=== PATIENT | female | born 1985 | race Caucasian/White ===

== ENCOUNTER 2022-02-19 10:31 | Inpatient (IN) ==
--- NOTE | 2022-02-19 10:55 | History & Physical Report ---
Date of Service February 19, 2022 Assessment & Plan (1) Encounter for induction of labor: Plan: Post dates. Currently at 40w3d. Admit to L&D for induction of labor. Had Rudolph bulb placed last night, which fell out soon after placement. Will start Pitocin. Epidural if desired. (2) In vitro fertilization: (3) Post-dates : Admission and Anticipated Discharge Date Admission Date: February 19, 2022 History of Present Illness Chief Complaint: IOL Primary Care Provider: Anai Hill MD Rosalina is a 36 y/o female currently at 40 3/7 WGA with an KEYANNA 02/16/22 as determined by LMP. Had IVF. Here for induction. Irregular contractions; + movement; denies fluid loss; denies bloody show External FHT and external uterine monitors used Category 1 with moderate variability Had regular appointments with OB. Labs: (07/26/21) Blood type: A+ Antibody screen: negative Hg: pending (today) Hct: pending (today) WBC: pending (today) Plt: pending (today) Rubella: Immune VDRL/RPR: Nonreactive Gonorrhea: neg Chlamydia: neg HIV: neg HbSAg: non reactive GBS: neg Other screens: low risk panorama declined afp Allergies Allergy/AdvReac Type Severity Reaction Status Date / Time progesterone Allergy Severe hives and Verified 02/18/22 09:42 facial swelling Home Medications Medication Instructions Recorded Confirmed Type vit no.95-ferrous 1 tab PO DAILY 06/27/21 02/19/22 History fumarate 28 mg-folic acid 800 mcg tablet () Patient History Medical History Endometriosis History of HPV infection History of ovarian cyst 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 Uterine polyp Surgical History S/P removal of left ovary [place] teeth extracted Family History (Updated 07/16/21 @ 10:06 by Afsaneh Gauthier, DEX) Grandfather (Paternal) Diabetes Aunt Diabetes Grandmother (Maternal) Uterine cancer Congestive heart failure Denies family history of Ovarian cancer Prostate cancer Breast cancer Lung cancer Social History (Updated 07/16/21 @ 10:07 by Afsaneh Gauthier, RN) Smoking Status: Never smoker Second Hand Exposure: No; Hx Alcohol Use: No Hx Substance Use: No Preferred Language: Vietnamese Communication Ability: Effective Director [employer] Required: No Beliefs That Will Affect Care: None marital status: marital status details: Jesus (35) [phone] Current Living Situation: Spouse Current Living Situation Comment: and 2 dogs current occupational status: employed current occupation: Dental office Other Information That Helps Us Care for You: No Feels Safe at Home: Yes Safety Concerns: Feels Safe At This Time Assistive Devices: None Review of Systems Denies fever, chills, sweats Denies shortness of breath, difficulty breathing, chest pain, palpitations, chest pressure. Denies breast pain. Denies dysuria. Denies headache or changes in vision. Physical Exam Physical Exam: General: Alert, oriented. No acute distress. Cardiac: Regular rate and rhythm, no murmurs/rubs/gallops. Respiratory: Clear to auscultation bilaterally a/p, no wheezes/rales/rhonchi. No increased work of breathing. Symmetrical chest rise. No respiratory distress. Abdomen: Gravid Pelvic: Dilation 2 cm; Effacement 50; Station -[address] Smith Lower Extremities: No lower extremity edema or swelling. No deep calf pain. Shavonne's negative bilaterally Supervising Physician Co-Signing Physician Notes Resident Physician Supervision Note: I interviewed and examined the patient. Discussed with Dr. Riggs and agree with findings and plan as documented in the note. Any exceptions or clarifications are listed here: with iup at 40+ weeks here for postdates induction. IVF . Uncomplicated. PLan pit, epidural on demand, arom. anticipate . Documented By: Saloni Smith MD, FACOG Resident Activity Tracking Resident Involvement: Resident Care Provided Care Provided: OB Delivery
[2022-02-19] MEDS ORDERED: OXYTOCIN 30 UNITS/500 ML BAG IV PRN ×2 (11:23)
[2022-02-19] MEDS ORDERED: LIDOCAINE 1% LOCAL 20 ML VIAL INFIL PRN (11:23)
[2022-02-19] MEDS: LACTATED RINGER'S 1,000 ML IV PRN ×3 (11:44→22:00)
[2022-02-19 11:59] LABS: Hematocrit (blood only) 36.3 % (34.1-44.9); Mean Corpuscular Hemoglobin 30.2 pg (25.0-34.0); Mean Corpuscular Hgb Conc 35.8 g/dL (32.0-36.0); Mean Corpuscular Volume 84.4 fL (80.0-100.0); Mean Platelet Volume 12.1 fL (9.4-12.3); Platelet Count 141 K/uL (130-400); RDW Coefficient of Variation 12.2 % (11.5-14.5); RDW Standard Deviation 36.6 fL (36.4-46.3); White Blood Count 9.56 K/ul (4.8-10.8)
[2022-02-19] MEDS ORDERED: BUPIVACAINE 0.25% 30 ML VIAL ONE ×2 (17:41→23:42)
[2022-02-19] MEDS ORDERED: SODIUM CHLORIDE 0.9% INJ 10 ML VIAL ONE ×2 (17:41→23:42)
[2022-02-19] MEDS ORDERED: LIDOCAINE 2%/EPINEPHRINE 1:200,000 20 ML SDV ONE (17:41)
[2022-02-19] MEDS ORDERED: ePHEDrine sulfate 50 MG/ML AMP ONE (17:41)
[2022-02-19] MEDS ORDERED: fentaNYL citrate 100 MCG/2 ML VIAL ONE (17:41)
[2022-02-19] MEDS ORDERED: fentaNYL 2MCG/ML ROPIVACAINE 1.25MG/ML 100 ML BAG EPI ONE (17:42)
[2022-02-19] MEDS ORDERED: fentaNYL 2MCG/ML ROPIVACAINE 1.25MG/ML 100 ML BAG EPI PRN (18:11)
[2022-02-19] MEDS ORDERED: NALBUPHINE HCL INJ 10 MG/ML AMP IV PRN (18:11)
[2022-02-19] MEDS ORDERED: diphenhydrAMINE 50 MG/ML VIAL IV PRN (18:11)
[2022-02-19] MEDS ORDERED: NALOXONE HCL 1 MG in SODIUM CHLORIDE 0.9% 1000ML 1,000 ML IV PRN (18:11)
[2022-02-19] MEDS ORDERED: ePHEDrine sulfate 50 MG/ML AMP IV PRN (18:11)
[2022-02-19] MEDS ORDERED: ONDANSETRON INJ 2 MG/ML 2 ML VIAL IV PRN (18:11)
[2022-02-19] MEDS ORDERED: NALOXONE HCL 0.4 MG/1 ML VIAL/CARP IV PRN (18:11)
--- NOTE | 2022-02-19 18:13 | Anesthesiology Consultation ---
Date of Service February 19, 2022 Assessment & Plan Chart Review Chart Review: Patient NOT seen in Pre Admission Testing and Acceptable Risk for Labor Epidural Consults Requested none ASA ASA2 Proposed Anesthesia Anesthesia Type: Labor Epidural and CSE Risk / Benefits Reviewed With: PT / POA / Parent / Guardian, Accepts Plan and Informed Consent Obtained History Height/Weight Height: 5 ft 2 in Weight: 65.771 kg Allergies Allergy/AdvReac Type Severity Reaction Status Date / Time progesterone Allergy Severe hives and Verified 02/18/22 09:42 facial swelling Medications Home Medications Medication Instructions Recorded Confirmed Last Taken vit no.95-ferrous 1 tab PO DAILY 06/27/21 02/19/22 02/18/22 fumarate 28 mg-folic acid 800 mcg tablet () Active Medications Generic Name Dose Route Start Last Admin Trade Name Freq PRN Reason Stop Dose Admin Oxytocin 30 units in 500 mls @ 14 mls/hr 02/19/22 11:23 02/19/22 16:45 Pitocin IV 02/21/22 11:22 0.84 units/hr .Q24H PRN 14 mls/hr Labor Induction/Augmentation Titration Protocol 0.84 UNITS/HR Lactated Ringer's 1,000 mls @ 125 mls/hr 02/19/22 11:23 02/19/22 17:45 Lr IV 02/21/22 11:22 999 mls/hr .Q8H PRN Administration L&D Protocol Protocol NPO Date Last Intake of Fluids: 02/19/22 Time Last Intake of Fluids: 17:00 Date Last Intake of Solids: 02/19/22 Time Last Intake of Solids: 09:00 Past Medical History Medical History Endometriosis History of HPV infection History of ovarian cyst 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 Uterine polyp Exercise / Class Metabolic Activity II 4-5 Yardwork/Stairs/Walk up hill Past Family History Family History Grandfather (Paternal) Diabetes Aunt Diabetes Grandmother (Maternal) Uterine cancer Congestive heart failure Denies family history of Ovarian cancer Prostate cancer Breast cancer Lung cancer Past Surgical History Surgical History S/P removal of left ovary [place] teeth extracted Past Anesthesia History No Hx of Anesthesia Complications and No Family Hx of Anesthesia Complications History of PONV No Hx of PONV and No Hx of Motion Sickness Social History Smoking Status: Never smoker Hx Alcohol Use: No Hx Substance Use: No substance use type: does not use Review of Systems no chest pain or sob Physical Exam Vital Signs Last Vital Signs Temp 37.1 C 02/19/22 16:30 Pulse 67 02/19/22 18:10 Resp 18 02/19/22 18:00 BP 116/77 02/19/22 17:59 Pulse Ox 100 02/19/22 18:10 ENMT Mouth: no TMJ abnormality Thyromental Distance: > or= 3.5 Finger Breadths Mallampati Class: II Neck normal visual inspection Respiratory normal respiratory effort Auscultation: lungs clear to auscultation bilaterally Cardiovascular Rate/Rhythm: regular rate and regular rhythm Musculoskeletal Spine: normal cervical ROM Neurologic moves all extremities Psychiatric Orientation: alert and oriented x 3 Testing Laboratory Results 02/19/22 11:43
--- NOTE | 2022-02-19 19:14 | Labor Progress Brief Note ---
Date of Service February 19, 2022 Subjective comfortable after epidural Assessment & Plan (1) Encounter for induction of labor: Plan continue current management. fetus category one. Admission and Anticipated Discharge Date Admission Date: February 19, 2022 Physical Exam Physical Exam: cx--3-4/75/-2 arom--clear toco--q2-4, pit at 14 efm--140s with mod variability, accels to 160s, no decels Results & Data ([facility]) Vital Signs (Past 12 Hours) Vital Signs Temp Pulse Resp BP Pulse Ox 02/19/22 10:51 36.9 C 20 02/19/22 19:10 98 02/19/22 19:10 77 02/19/22 19:05 97 02/19/22 19:05 60 02/19/22 19:01 18 02/19/22 19:01 36.8 C 18 02/19/22 19:00 20 02/19/22 19:00 20 02/19/22 19:00 97 02/19/22 19:00 62 02/19/22 19:01 62 02/19/22 19:01 112/70 02/19/22 18:55 96 02/19/22 18:55 74 02/19/22 18:55 107/70 02/19/22 18:50 97 02/19/22 18:50 69 02/19/22 18:50 112/58 L 02/19/22 18:45 97 02/19/22 18:45 63 02/19/22 18:44 66 02/19/22 18:44 102/64 02/19/22 18:30 20 02/19/22 18:30 20 02/19/22 18:40 97 02/19/22 18:40 63 02/19/22 18:40 99/62 L 02/19/22 18:35 98 02/19/22 18:35 62 02/19/22 18:34 75 02/19/22 18:34 106/60 02/19/22 18:32 61 02/19/22 18:32 104/59 L 02/19/22 18:30 99 02/19/22 18:30 67 02/19/22 18:30 66 02/19/22 18:30 107/59 L 02/19/22 18:28 62 02/19/22 18:28 102/56 L 02/19/22 18:27 62 02/19/22 18:27 113/56 L 02/19/22 18:25 100 02/19/22 18:25 80 02/19/22 18:24 70 02/19/22 18:24 118/76 02/19/22 18:23 81 02/19/22 18:23 120/71 02/19/22 18:20 100 02/19/22 18:20 78 02/19/22 18:15 100 02/19/22 18:15 74 02/19/22 18:10 100 02/19/22 18:10 67 02/19/22 18:05 100 02/19/22 18:05 67 02/19/22 18:00 18 02/19/22 18:00 18 02/19/22 18:00 100 02/19/22 18:00 67 02/19/22 17:59 60 02/19/22 17:59 116/77 02/19/22 17:30 20 02/19/22 17:30 20 02/19/22 17:55 100 02/19/22 17:55 64 02/19/22 17:50 99 02/19/22 17:50 64 02/19/22 17:50 120/76 02/19/22 17:00 16 02/19/22 17:00 16 02/19/22 16:30 20 02/19/22 16:30 37.1 C 20 02/19/22 17:00 65 02/19/22 17:00 113/75 02/19/22 16:08 68 02/19/22 16:08 111/73 02/19/22 15:03 67 02/19/22 15:03 113/75 02/19/22 14:01 78 02/19/22 14:01 116/75 02/19/22 13:00 18 02/19/22 13:00 18 02/19/22 12:59 77 02/19/22 12:59 120/80 02/19/22 12:30 20 02/19/22 12:30 20 02/19/22 12:00 18 02/19/22 12:00 18 02/19/22 12:22 75 02/19/22 12:22 106/67 02/19/22 10:49 76 118/74 Coding Level of Care Code None Diagnoses Encounter for induction of labor Z34.90
--- NOTE | 2022-02-19 22:24 | Labor Progress Brief Note ---
Date of Service February 19, 2022 Subjective comfortable Assessment & Plan (1) Encounter for induction of labor: Plan continue current management. has made small changed. fetus overall reassuring, occasional variable with contraction but mostly early. light mec noted at last check. if no change in another hour, consider iupc. Admission and Anticipated Discharge Date Admission Date: February 19, 2022 Physical Exam Physical Exam: cx--/90/-2 per nursing bloody show and light mec noted by nursing efm--130s with mod variabiltiy, small accels , variable/early decels with contractions toco--q3-5min, pit at 18 Results & Data ([facility]) Vital Signs (Past 12 Hours) Vital Signs Temp Pulse Resp BP Pulse Ox 02/19/22 10:51 36.9 C 20 02/19/22 22:20 98 02/19/22 22:20 77 02/19/22 22:15 97 02/19/22 22:15 82 02/19/22 22:12 64 02/19/22 22:12 114/70 02/19/22 22:10 94 02/19/22 22:10 67 02/19/22 22:05 96 02/19/22 22:05 61 02/19/22 22:00 97 02/19/22 22:00 71 02/19/22 21:58 61 02/19/22 21:58 98/55 L 02/19/22 21:55 97 02/19/22 21:55 69 02/19/22 21:50 97 02/19/22 21:50 67 02/19/22 21:47 18 02/19/22 21:47 37.1 C 18 02/19/22 21:45 98 02/19/22 21:45 79 02/19/22 21:40 97 02/19/22 21:40 64 02/19/22 21:41 61 02/19/22 21:41 116/68 02/19/22 21:35 96 02/19/22 21:35 70 02/19/22 21:30 97 02/19/22 21:30 65 02/19/22 21:27 64 02/19/22 21:27 107/64 02/19/22 21:25 98 02/19/22 21:25 71 02/19/22 21:20 97 02/19/22 21:20 66 02/19/22 21:15 97 02/19/22 21:15 84 02/19/22 21:12 64 02/19/22 21:12 112/67 02/19/22 21:10 97 02/19/22 21:10 72 02/19/22 21:05 96 02/19/22 21:05 67 02/19/22 21:00 97 02/19/22 21:00 67 02/19/22 20:55 96 02/19/22 20:55 67 02/19/22 20:56 68 02/19/22 20:56 101/60 02/19/22 20:50 96 02/19/22 20:50 65 02/19/22 20:45 98 02/19/22 20:45 68 02/19/22 20:42 63 02/19/22 20:42 102/60 02/19/22 20:40 95 02/19/22 20:40 67 02/19/22 20:35 96 02/19/22 20:35 61 02/19/22 20:30 98 02/19/22 20:30 66 02/19/22 20:25 97 02/19/22 20:25 63 02/19/22 20:26 64 02/19/22 20:26 96/55 L 02/19/22 20:20 97 02/19/22 20:20 65 02/19/22 20:15 98 02/19/22 20:15 65 02/19/22 20:11 63 02/19/22 20:11 110/67 02/19/22 20:10 98 02/19/22 20:10 69 02/19/22 20:09 18 02/19/22 20:09 37.2 C 18 02/19/22 20:05 97 02/19/22 20:05 62 02/19/22 20:00 96 02/19/22 20:00 70 02/19/22 19:55 95 02/19/22 19:55 62 02/19/22 19:56 63 02/19/22 19:56 105/64 02/19/22 19:50 96 02/19/22 19:50 65 02/19/22 19:45 96 02/19/22 19:45 66 02/19/22 19:41 18 02/19/22 19:41 18 02/19/22 19:41 64 02/19/22 19:41 112/69 02/19/22 19:40 95 02/19/22 19:40 75 02/19/22 19:35 95 02/19/22 19:35 65 02/19/22 19:30 96 02/19/22 19:30 71 02/19/22 19:25 96 02/19/22 19:25 76 02/19/22 19:26 74 02/19/22 19:26 116/65 02/19/22 19:20 97 02/19/22 19:20 71 02/19/22 19:15 95 02/19/22 19:15 70 02/19/22 19:10 98 02/19/22 19:10 77 02/19/22 19:05 97 02/19/22 19:05 60 02/19/22 19:01 18 02/19/22 19:01 36.8 C 18 02/19/22 19:00 20 02/19/22 19:00 20 02/19/22 19:00 97 02/19/22 19:00 62 02/19/22 19:01 62 02/19/22 19:01 112/70 02/19/22 18:55 96 02/19/22 18:55 74 02/19/22 18:55 107/70 02/19/22 18:50 97 02/19/22 18:50 69 02/19/22 18:50 112/58 L 02/19/22 18:45 97 02/19/22 18:45 63 02/19/22 18:44 66 02/19/22 18:44 102/64 02/19/22 18:30 20 02/19/22 18:30 20 02/19/22 18:40 97 02/19/22 18:40 63 02/19/22 18:40 99/62 L 02/19/22 18:35 98 02/19/22 18:35 62 02/19/22 18:34 75 02/19/22 18:34 106/60 02/19/22 18:32 61 02/19/22 18:32 104/59 L 02/19/22 18:30 99 02/19/22 18:30 67 02/19/22 18:30 66 02/19/22 18:30 107/59 L 02/19/22 18:28 62 02/19/22 18:28 102/56 L 02/19/22 18:27 62 02/19/22 18:27 113/56 L 02/19/22 18:25 100 02/19/22 18:25 80 02/19/22 18:24 70 02/19/22 18:24 118/76 02/19/22 18:23 81 02/19/22 18:23 120/71 02/19/22 18:20 100 02/19/22 18:20 78 02/19/22 18:15 100 02/19/22 18:15 74 02/19/22 18:10 100 02/19/22 18:10 67 02/19/22 18:05 100 02/19/22 18:05 67 02/19/22 18:00 18 02/19/22 18:00 18 02/19/22 18:00 100 02/19/22 18:00 67 02/19/22 17:59 60 02/19/22 17:59 116/77 02/19/22 17:30 20 02/19/22 17:30 20 02/19/22 17:55 100 02/19/22 17:55 64 02/19/22 17:50 99 02/19/22 17:50 64 02/19/22 17:50 120/76 02/19/22 17:00 16 02/19/22 17:00 16 02/19/22 16:30 20 02/19/22 16:30 37.1 C 20 02/19/22 17:00 65 02/19/22 17:00 113/75 02/19/22 16:08 68 02/19/22 16:08 111/73 02/19/22 15:03 67 02/19/22 15:03 113/75 02/19/22 14:01 78 02/19/22 14:01 116/75 02/19/22 13:00 18 02/19/22 13:00 18 02/19/22 12:59 77 02/19/22 12:59 120/80 02/19/22 12:30 20 02/19/22 12:30 20 02/19/22 12:00 18 10/19/22 12:00 18 02/19/22 12:22 75 02/19/22 12:22 106/67 02/19/22 10:49 76 118/74 Coding Level of Care Code None Diagnoses Encounter for induction of labor Z34.90
--- NOTE | 2022-02-19 23:11 | Labor Progress Brief Note ---
Date of Service February 19, 2022 Subjective some back discomfort Assessment & Plan (1) Post-dates : (2) Encounter for induction of labor: Plan fetus overall reassuring. will allow to labor down. begin active second stage in one hour. anticipate . Admission and Anticipated Discharge Date Admission Date: February 19, 2022 Physical Exam Physical Exam: cx--c/c/+0 toco--q2-3, pit at 18 efm--110s with mod variabiltiy, small accels, early decels with contractions Results & Data ([facility]) Vital Signs (Past 12 Hours) Vital Signs Temp Pulse Resp BP Pulse Ox 02/19/22 23:05 95 02/19/22 23:05 75 02/19/22 23:00 97 02/19/22 23:00 75 02/19/22 22:55 96 02/19/22 22:55 69 02/19/22 22:56 71 02/19/22 22:56 111/69 02/19/22 22:50 99 02/19/22 22:50 82 02/19/22 22:45 95 02/19/22 22:45 66 02/19/22 22:42 70 02/19/22 22:42 121/72 02/19/22 22:40 96 02/19/22 22:40 78 02/19/22 22:35 98 02/19/22 22:35 95 H 02/19/22 22:30 96 02/19/22 22:30 86 02/19/22 22:26 71 02/19/22 22:26 112/71 02/19/22 22:25 97 02/19/22 22:25 79 02/19/22 22:20 98 02/19/22 22:20 77 02/19/22 22:15 97 02/19/22 22:15 82 02/19/22 22:12 64 02/19/22 22:12 114/70 02/19/22 22:10 94 02/19/22 22:10 67 02/19/22 22:05 96 02/19/22 22:05 61 02/19/22 22:00 97 02/19/22 22:00 71 02/19/22 21:58 61 02/19/22 21:58 98/55 L 02/19/22 21:55 97 02/19/22 21:55 69 02/19/22 21:50 97 02/19/22 21:50 67 02/19/22 21:47 18 02/19/22 21:47 37.1 C 18 02/19/22 21:45 98 02/19/22 21:45 79 02/19/22 21:40 97 02/19/22 21:40 64 02/19/22 21:41 61 02/19/22 21:41 116/68 02/19/22 21:35 96 02/19/22 21:35 70 02/19/22 21:30 97 02/19/22 21:30 65 02/19/22 21:27 64 02/19/22 21:27 107/64 02/19/22 21:25 98 02/19/22 21:25 71 02/19/22 21:20 97 02/19/22 21:20 66 02/19/22 21:15 97 02/19/22 21:15 84 02/19/22 21:12 64 02/19/22 21:12 112/67 02/19/22 21:10 97 02/19/22 21:10 72 02/19/22 21:05 96 02/19/22 21:05 67 02/19/22 21:00 97 02/19/22 21:00 67 02/19/22 20:55 96 02/19/22 20:55 67 02/19/22 20:56 68 02/19/22 20:56 101/60 02/19/22 20:50 96 02/19/22 20:50 65 02/19/22 20:45 98 02/19/22 20:45 68 02/19/22 20:42 63 02/19/22 20:42 102/60 02/19/22 20:40 95 02/19/22 20:40 67 02/19/22 20:35 96 02/19/22 20:35 61 02/19/22 20:30 98 02/19/22 20:30 66 02/19/22 20:25 97 02/19/22 20:25 63 02/19/22 20:26 64 02/19/22 20:26 96/55 L 02/19/22 20:20 97 02/19/22 20:20 65 02/19/22 20:15 98 02/19/22 20:15 65 02/19/22 20:11 63 02/19/22 20:11 110/67 02/19/22 20:10 98 02/19/22 20:10 69 02/19/22 20:09 18 02/19/22 20:09 37.2 C 18 02/19/22 20:05 97 02/19/22 20:05 62 02/19/22 20:00 96 02/19/22 20:00 70 02/19/22 19:55 95 02/19/22 19:55 62 02/19/22 19:56 63 02/19/22 19:56 105/64 02/19/22 19:50 96 02/19/22 19:50 65 02/19/22 19:45 96 02/19/22 19:45 66 02/19/22 19:41 18 02/19/22 19:41 18 02/19/22 19:41 64 02/19/22 19:41 112/69 02/19/22 19:40 95 02/19/22 19:40 75 02/19/22 19:35 95 02/19/22 19:35 65 02/19/22 19:30 96 02/19/22 19:30 71 02/19/22 19:25 96 02/19/22 19:25 76 02/19/22 19:26 74 02/19/22 19:26 116/65 02/19/22 19:20 97 02/19/22 19:20 71 02/19/22 19:15 95 02/19/22 19:15 70 02/19/22 19:10 98 02/19/22 19:10 77 02/19/22 19:05 97 02/19/22 19:05 60 02/19/22 19:01 18 02/19/22 19:01 36.8 C 18 02/19/22 19:00 20 02/19/22 19:00 20 02/19/22 19:00 97 02/19/22 19:00 62 02/19/22 19:01 62 02/19/22 19:01 112/70 02/19/22 18:55 96 02/19/22 18:55 74 02/19/22 18:55 107/70 02/19/22 18:50 97 02/19/22 18:50 69 02/19/22 18:50 112/58 L 02/19/22 18:45 97 02/19/22 18:45 63 02/19/22 18:44 66 02/19/22 18:44 102/64 02/19/22 18:30 20 02/19/22 18:30 20 02/19/22 18:40 97 02/19/22 18:40 63 02/19/22 18:40 99/62 L 02/19/22 18:35 98 02/19/22 18:35 62 02/19/22 18:34 75 02/19/22 18:34 106/60 02/19/22 18:32 61 02/19/22 18:32 104/59 L 02/19/22 18:30 99 02/19/22 18:30 67 02/19/22 18:30 66 02/19/22 18:30 107/59 L 02/19/22 18:28 62 02/19/22 18:28 102/56 L 02/19/22 18:27 62 02/19/22 18:27 113/56 L 02/19/22 18:25 100 02/19/22 18:25 80 02/19/22 18:24 70 02/19/22 18:24 118/76 02/19/22 18:23 81 02/19/22 18:23 120/71 02/19/22 18:20 100 02/19/22 18:20 78 02/19/22 18:15 100 02/19/22 18:15 74 02/19/22 18:10 100 02/19/22 18:10 67 02/19/22 18:05 100 02/19/22 18:05 67 02/19/22 18:00 18 02/19/22 18:00 18 02/19/22 18:00 100 02/19/22 18:00 67 02/19/22 17:59 60 02/19/22 17:59 116/77 02/19/22 17:30 20 02/19/22 17:30 20 02/19/22 17:55 100 02/19/22 17:55 64 02/19/22 17:50 99 02/19/22 17:50 64 02/19/22 17:50 120/76 02/19/22 17:00 16 10/19/22 17:00 16 02/19/22 16:30 20 02/19/22 16:30 37.1 C 20 02/19/22 17:00 65 02/19/22 17:00 113/75 02/19/22 16:08 68 02/19/22 16:08 111/73 02/19/22 15:03 67 02/19/22 15:03 113/75 02/19/22 14:01 78 02/19/22 14:01 116/75 02/19/22 13:00 18 02/19/22 13:00 18 02/19/22 12:59 77 02/19/22 12:59 120/80 02/19/22 12:30 20 02/19/22 12:30 20 02/19/22 12:00 18 02/19/22 12:00 18 02/19/22 12:22 75 02/19/22 12:22 106/67 Coding Level of Care Code None Diagnoses Post-dates O48.0 Encounter for induction of labor Z34.90
[2022-02-19] MEDS ORDERED: NURSING L&D Epidural Breakthrough Pain Update ONE (23:24)
[2022-02-20] MEDS ORDERED: METHYLERGONOVINE MALEATE 0.2 MG/ML AMP IM ONE (02:28)
[2022-02-20] MEDS ORDERED: OXYTOCIN 30 UNITS/500 ML BAG IV PRN (02:28)
[2022-02-20] MEDS ORDERED: oxyCODONE/ACETAMINOPHEN 5mg/325mg TAB PO PRN (02:28)
[2022-02-20] MEDS ORDERED: HYDROCORTISONE ACETATE 25 MG SUPP PR PRN (02:28)
[2022-02-20] MEDS ORDERED: ACETAMINOPHEN 325 MG TAB PO PRN (02:28)
[2022-02-20] MEDS ORDERED: DIPHTHERIA/TETANUS/PERTUSSIS 0.5 ML SYR/VIAL IM ONE (02:28)
[2022-02-20] MEDS ORDERED: BENZOCAINE 20% AER SPR 82.5 GM CAN EXT PRN (02:28)
[2022-02-20] MEDS ORDERED: bisacodyL 10 MG SUPP PR PRN (02:28)
--- NOTE | 2022-02-20 02:33 | Delivery Summary ---
Vaginal Delivery Summary Date of Service February 20, 2022 Vaginal Delivery Summary and 2nd Degree LAC Pre-operative Diagnosis: at 40 +weeks ivf Post-operative Diagnosis: same meconium Procedure: pitocin induction epidural arom second degree lac reapir EBL: 350cc Anesthesia: epidural Procedure: The patient presents to labor and delivery for induction for postdates. She underwent pitocin induction and then epidural. Had arom for clear fluid. During the course of labor, meconium noted. The patient progressed to c/c/+1 station and labored down for a little over an hour. The patient pushed for 23 min to deliver a viable female in linnea position. The nose and mouth were bulb suctioned on the perineum and the rest of the was then delivered without difficulty. The baby was vigorous. The nose and mouth were again bulb suctioned and the infant was placed in the maternal abdomen for drying and attention. Cord was clamped and cut at one minute of life. Cord blood and segment obtained. Placenta delivered spontaneous, intact with a three vessel cord. Cervix/sulci/rectum were intact. A second degree perineal laceration was repaired in the normal standard fashion. Hemostasis obtained with dilute pitocin and fundal massage. Apgars were 8/9. Mother and baby doing well at the end of the delivery. [facility] Vaginal Delivery Charge Delivery Type Details: and 2nd Degree LAC
[2022-02-20] MEDS: IBUPROFEN 600 MG TAB PO PRN ×3 (06:28→19:41)
--- NOTE | 2022-02-20 06:28 | Anesthesia Procedure Note ---
Date of Service February 20, 2022 Anesthesia Post Epidural Note Vital Signs Vital Signs: Temp Pulse Resp BP Pulse Ox 37.0 C 82 18 120/68 98 02/20/22 04:27 02/20/22 06:26 02/20/22 04:27 02/20/22 06:26 02/20/22 02:25 Pain Intensity Back: Pain Intensity: 1 Notes Mental Status: alert / awake / arousable and participated in evaluation Nausea / Vomiting: adequately controlled Pain: adequately controlled Airway Patency, RR, SpO2: stable & adequate BP & HR: stable & adequate Hydration State: stable & adequate Neuraxial Anesthesia: was administered and sensory block is resolving Anesthetic Complications: no major complications apparent and Pt Satisfied with anesthetic care Epidural: Removed without complications and With tip intact
[2022-02-20] MEDS: DOCUSATE SODIUM 100 MG CAP PO SCH ×2 (08:32→19:43)
[2022-02-20] MEDS: PRENATAL VITAMIN 1 TAB PO SCH (08:32)
[2022-02-21] MEDS: IBUPROFEN 600 MG TAB PO PRN ×2 (00:28→08:50)
--- NOTE | 2022-02-21 05:57 | Obstetrical Progress Note ---
Date of Service <Monica Riggs, DO - Last Filed: 02/21/22 07:17> February 21, 2022 Assessment & Plan <Monica Riggs DO - Last Filed: 02/21/22 07:17> (1) Status post vaginal delivery: continue OOB, ambulation, diet as tolerated. <Karlee Escobar, DO - Last Filed: 02/21/22 07:46> (1) Status post vaginal delivery: Subjective <Monica Riggs, DO - Last Filed: 02/21/22 07:17> Rosalina is a 36 y/o female who is now PPD # 1 following spontaneous vaginal delivery at 40 4/7 weeks. Reports feeling well overall this morning. Mild abdominal cramping well managed on analgesics. Voiding. Tolerating meals overnight and able to ambulate some. Some persistent lochia with some improvement this morning. Breast feeding. Review of Systems Denies fever, chills, sweats Denies shortness of breath, difficulty breathing, chest pain, palpitations, chest pressure. Denies breast pain. Denies dysuria. Denies headache or changes in vision. Physical Exam <Monica Riggs, DO - Last Filed: 02/21/22 07:17> General: Alert, oriented. No acute distress. Cardiac: Regular rate and rhythm, no murmurs/rubs/gallops. Respiratory: Clear to auscultation bilaterally a/p, no wheezes/rales/rhonchi. No increased work of breathing. Symmetrical chest rise. No respiratory distress. Abdomen: Soft, nontender, nondistended. Uterus: Uterine fundus firm, palpable 2 cm below umbilicus. Lower Extremities: No lower extremity edema or swelling. No deep calf pain. Shavonne's negative bilaterally. Results & Data ([facility]) <Monica Riggs, DO - Last Filed: 02/21/22 07:17> Vital Signs (Past 12 Hours) Vital Signs Temp Pulse Resp BP Pulse Ox O2 Del Method 02/21/22 00:15 36.5 C 66 18 118/79 100 Room Air 02/20/22 18:23 36.5 C 80 16 112/74 Room Air <Karlee Escobar, DO - Last Filed: 02/21/22 07:46> Co-Signing Physician Notes Resident Physician Supervision Note: I interviewed and examined the patient. Discussed with Dr. Riggs and agree with findings and plan as documented in the note. Any exceptions or clarifications are listed here: PPD#1 doing well. Possibly wants discharge home today. Documented By: Karlee Escobar DO Resident Activity Tracking <Monica Riggs DO - Last Filed: 02/21/22 07:17> Resident Involvement: Resident Care Provided Care Provided: OB Delivery (Post )
[2022-02-21 07:00] LABS: Hemoglobin 10.7 g/dl (12.0-16.0)
[2022-02-21] MEDS: PRENATAL VITAMIN 1 TAB PO SCH (08:50)
[2022-02-21] MEDS: DOCUSATE SODIUM 100 MG CAP PO SCH (08:50)
[2022-02-21] MEDS ORDERED: bisacodyL 5 MG TABEC PO SCH (20:00)
== END 2022-02-21 15:50 | disposition home or self-care (01) | DRG 807 ==
LOC: 4S1 10:31 → 4E2 02-20 06:55